=== PATIENT | female | born 2000 | race Two or more races ===

== ENCOUNTER 2022-10-27 23:01 | Emergency (ER) | payer MEDICAID ==
[~2022-10-27] VITALS: Ht 160 cm; Wt 59.1 kg
[2022-10-27] MEDS ORDERED: TETANUS-DIPTH-ACEL PERTUSSIS 0.5ML SYR Tdap IM ONE (23:30)
[2022-10-27] MEDS ORDERED: SILVER SULFADIAZINE 1 % TOPICAL CREAM 50GM TOP ONE (23:30)
[2022-10-27] MEDS ORDERED: IBUPROFEN 800 MG TAB PO ONE (23:30)
[2022-10-27 23:35] VITALS: BP 125/77
[2022-10-28] MEDS ORDERED: SILV1CRE82 TOP (01:13)
[2022-10-28] MEDS ORDERED: IBUP800T26 PO (01:13)
== END 2022-10-28 04:25 | disposition home or self-care (01) ==
LOC: ER 23:01
DX: T24.111A Burn of first degree of right thigh, initial encounter (principal); X10.0XXA Contact with hot drinks, initial encounter; Y93.89 Activity, other specified; Y92.89 Other specified places as the place of occurrence of the external cause; Y99.8 Other external cause status
CPT/HCPCS: 16000; 90471; 90715